=== PATIENT | male | born 1930 | race Caucasian/White ===

== ENCOUNTER 2019-03-11 14:06 | Emergency (ER) | payer MEDICARE, BC ==
[~2019-03-11] VITALS: Ht 188 cm; Wt 102.3 kg
[~2019-03-11 14:06] MED LIST: ADV250INH INH; CENTTAB47 PO; COUM7.5T PO; FINA5TAB2 PO; FLOM0.4C39 PO; GLIP5TAB8 PO; IPRA0.00 IN; MILK120011 PO; MIRA3350 PO; MOTR200T44 PO; PERCOCET PO; PRAV1TAB39 PO; PRIL20CA9 PO; PROAAER10 IN; SING10TA32 PO; TIOT18INH INH; TYLE325T5 PO
[2019-03-11] MEDS ORDERED: GLUC1TAB6 PO (14:33)
[2019-03-11] MEDS ORDERED: PULM0.5S NEB (14:33)
[2019-03-11] MEDS ORDERED: IBUP80TA PO (14:33)
[2019-03-11] MEDS ORDERED: PRESCAP PO (14:33)
[2019-03-11] MEDS ORDERED: BROV15NE NEB (14:33)
[2019-03-11 16:26] VITALS: BP 132/64
== END 2019-03-11 17:14 | disposition home or self-care (01) ==
LOC: M ED 14:06 → EDBD 14:06 → M ED 17:14
DX: R01.1 Cardiac murmur, unspecified (principal); H53.8 Other visual disturbances; T63.441A Toxic effect of venom of bees, accidental (unintentional), initial encounter; Y92.096 Garden or yard of other non-institutional residence as the place of occurrence of the external cause; Y93.89 Activity, other specified; K21.9 Gastro-esophageal reflux disease without esophagitis; N40.0 Benign prostatic hyperplasia without lower urinary tract symptoms; E11.9 Type 2 diabetes mellitus without complications; J45.909 Unspecified asthma, uncomplicated; J44.9 Chronic obstructive pulmonary disease, unspecified; Z79.84 Long term (current) use of oral hypoglycemic drugs; Z79.899 Other long term (current) drug therapy